=== PATIENT | male | born 1990 | race Caucasian/White ===

== ENCOUNTER → 2019-04-23 15:53 | Outpatient (BNVA) | payer BC, SELFPAY | PROVIDERS: Family Provider Family Medicine; PCP Family Medicine; Visit Provider Nurse Practitioner Psychiatric/Mental Health | DX: F41.1 Generalized anxiety disorder (principal); F33.1 Major depressive disorder, recurrent, moderate; Z79.899 Other long term (current) drug therapy | CPT/HCPCS: 80307; 90832; 99213 ==

== ENCOUNTER → 2019-05-03 15:01 | Outpatient (BNVA) | payer BC, SELFPAY | PROVIDERS: Family Provider Family Medicine; PCP Family Medicine; Visit Provider Nurse Practitioner | DX: G89.29 Other chronic pain (principal); M43.16 Spondylolisthesis, lumbar region; M51.17 Intervertebral disc disorders with radiculopathy, lumbosacral region; M62.830 Muscle spasm of back; F17.210 Nicotine dependence, cigarettes, uncomplicated; Z79.891 Long term (current) use of opiate analgesic | CPT/HCPCS: 99214 ==

== ENCOUNTER → 2019-05-15 17:17 | Outpatient (BNVA) | payer BC, SELFPAY | PROVIDERS: Family Provider Family Medicine; PCP Family Medicine; Visit Provider Nurse Practitioner Family | DX: R05 Cough (principal); J40 Bronchitis, not specified as acute or chronic | CPT/HCPCS: 87804 ==

== ENCOUNTER 2019-07-31 00:28 | Emergency (ER) | payer SELFPAY ==
[2019-07-31 00:37] VITALS: BP 144/70; PULSE 104; RESP 14; TEMP 36.8; O2SAT 98; BMI 24.3
== END 2019-07-31 03:54 | disposition left against medical advice (07) ==
LOC: ER 00:38
PROVIDERS: Emergency Provider Family Medicine
DX: Z53.21 Procedure and treatment not carried out due to patient leaving prior to being seen by health care provider (principal)
CPT/HCPCS: 99281

== ENCOUNTER 2019-08-14 18:27 | Inpatient (IN) | payer SELFPAY ==
[2019-08-14 18:38] VITALS: BP 119/79; PULSE 74; RESP 16; TEMP 36.5; O2SAT 96; BMI 28.8
--- NOTE | 2019-08-14 18:52 | ED_ITS ---
HPI - Psych General: Chief Complaint: Psychiatric Symptoms Stated Complaint: anxiety/depression Time Seen by Provider: 08/14/19 18:45 Source: patient Mode of arrival: ambulatory Limitations: no limitations History of Present Illness: HPI Narrative: 28-year-old male states he has had a lot of stressors recently. He states that he has had changes in his job and is felt very anxious and depressed. He states he was diagnosed with anxiety 3 months ago but is not been taking his meds. He states he is feeling hopeless. He has no suicidal plan states he feels like he needs to be admitted and wants to voluntarily be admitted to the psych unit. He denies any worsening or improving factors at this time. complaint: feels depressed Onset (ago): week(s) Duration: constant Associated symptoms: Reports depression Review of Systems Const: Denies: fever(s), chills, body aches or change in appetite Eyes: Denies: blurry vision or eye discomfort ENMT: Denies: throat pain or dental pain Card: Denies: chest pain Resp: Denies: dyspnea GI: Denies: abdominal pain, nausea, vomiting or diarrhea : Denies: dysuria Musc: Denies: neck pain or back pain Skin/Breast: Denies: rash Neuro: Denies: headache(s) Psych: Reports: anxiety, depression and hopelessness Fernando/Lymph: Denies: easy bruising All/Imm: Denies: urticaria PFSH ED PFSH: Medical History Chronic low back pain Hx of fracture of ankle PINS PLACED AND LATER REMOVED Intervertebral disc disorders with radiculopathy, lumbosacral region Long-term current use of opiate analgesic Lumbar paraspinal muscle spasm Pain management contract signed Spondylolisthesis, lumbar region Tobacco use disorder Family History Father Psychiatric illness SCHIZOPHRENIA Mother Thyroid disease Social History Smoking and tobacco status: current every day smoker Alcohol intake: never Caregiver/support person: Yes Lives independently: Yes Household members: spouse Marital status: Current occupational status: employed Current occupation: [employer] History of recent travel: No Physical Exam Const: COMMON NORMALS: no acute distress, patient oriented x3 and healthy appearing HENMT: COMMON NORMALS: normocephalic and atraumatic HEAD & SCALP: normocephalic and atraumatic Eye: COMMON NORMALS: Equal, round and reactive pupils present and EOMs intact bilaterally PUPIL: Yes Equal, round and reactive pupils present Neck/C-Spine: COMMON NORMALS: full ROM and supple Chest: COMMONS NORMALS: normal inspection of the chest and normal palpation of entire chest wall Resp: COMMON NORMALS: normal respiratory effort, No retractions, No use of accessory muscles and clear to auscultation bilaterally AUSCULTATION: clear to auscultation bilaterally Cardio: COMMON NORMALS: regular rate, regular rhythm and No murmurs present (Cardio) RATE: regular rate RHYTHM: regular rhythm GI: COMMON NORMALS: Normal to inspection, nondistended, normoactive bowel sounds present, Soft to palpation, non-tender and no masses PALPATION: Yes Soft to palpation Extremity: COMMON NORMALS: normal to inspection and full ROM Neuro: COMMON NORMALS: patient oriented x3, moves all extremities and no focal motor deficits Psych: COMMON NORMALS: mental status grossly normal, Normal thought process present and cooperative MOOD & AFFECT: Yes depressed mood, Yes anxious and Yes tearful THOUGHT PROCESS: Normal thought process present Skin: COMMON NORMALS: no rashes or lesions noted and no wounds GENERAL SKIN EXAM: no rashes or lesions noted MDM - Psych 2 MDM Narrative: Medical decision making narrative: Patient presents here with depression and increased stress. Patient is voluntarily wanting to go to psychiatric unit and patient is medically cleared and stable for admission. I spoke to Dr. Dickerson and will admit. Lab Data: Labs: Lab Results 08/14/19 08/14/19 08/14/19 Range/Units 19:32 19:32 20:05 WBC 5.1 (4.0-10.0) 10^3/ uL RBC 5.05 (4.1-5.3) 10^6/u L Hgb 14.2 (11.7-16.6) g/dL Hct 43.3 (42.0-52.0) % MCV 85.7 (80-94) fL MCH 28.1 (28.0-34.0) pg MCHC 32.8 (30.0-36.0) g/dL RDW 12.8 (12.1-15.1) % Plt Count 262 (130-400) 10^3/c mm MPV 10.7 H (7.4-10.4) fL Neut % (Auto) 53.4 % Lymph % (Auto) 37.9 % [place] % (Auto) 7.3 % Eos % (Auto) 0.8 % Baso % (Auto) 0.4 % Neut # (Auto) 2.7 (1.8-7.7) 10^3/u L Lymph # (Auto) 1.9 (0.8-4.8) 10^3/u L [place] # (Auto) 0.4 (0.2-0.9) 10^3/u L Eos # (Auto) 0.0 (0.0-0.8) 10^3/u L Baso # (Auto) 0.0 (0.0-0.1) 10^3/u L Nucleated RBC % (a uto) 0 % Nucleated RBCs # 0.0 /100WBC Sodium 137 (136-145) mmol/L Potassium 4.1 (3.5-5.1) mmol/L Chloride 100 (98-107) mmol/L Carbon Dioxide 25 (22-29) mmol/L Anion Gap 16.1 (5-19) BUN 13 (6-20) mg/dL Creatinine 0.9 (0.7-1.2) mg/dL GFR Calculation 102.0 (90-130) mL/min Glucose 152 H (65-115) mg/dL Calculated Osmolal ity 283 L (285-295) mOsm/k g Calcium 9.6 (8.5-10.5) mg/dL Total Bilirubin 1.4 H (0.15-1.2) mg/dL AST 22 (0-40) U/L ALT 13 (0-41) U/L Alkaline Phosphata se 62 (40-130) IU/L Total Protein 7.2 (6.6-8.7) g/dL Albumin 4.7 (3.5-5.2) g/dL Globulin 2.5 (1.3-4.6) g/dL Salicylates < 0.3 L (3-10) mg/dL Urine Opiates Scre en Negative (Negative) ng/mL Acetaminophen < 5.0 L (10-30) ug/mL Ur Barbiturates Sc reen Negative (Negative) ng/mL Ur Phencyclidine S crn Negative (Negative) ng/mL Ur Amphetamines Sc reen Positive H (Negative) ng/mL U Benzodiazepines Scrn Negative (Negative) ng/mL Urine Cocaine Scre en Negative (Negative) ng/mL U Marijuana (THC) Screen Positive H (Negative) ng/mL Ethyl Alcohol < 10 (0-10) mg/dL Discharge Plan Discharge Patient Disposition: Admitted As Inpatient Admit Provider: Darrin Dickerson Clinical Impression: Depression Qualifiers: Depression Type: unspecified Qualified Code(s): F32.9 - Major depressive disorder, single episode, unspecified Condition: Stable Coding Level of Care Code ED 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
[2019-08-14] MEDS: LORazepam 1 mg Tablet 2 MG PO (19:07)
[2019-08-14 19:47] LABS: Basophils % 0.4 %; Eosinophils % 0.8 %; Hematocrit 43.3 % (42.0-52.0); Hemoglobin 14.2 g/dL (11.7-16.6); Lymphocytes # 1.9 10^3/uL (0.8-4.8); Lymphocytes % 37.9 %; Mean Corpuscular HGB Conc 32.8 g/dL (30.0-36.0); Mean Corpuscular Hemoglobin 28.1 pg (28.0-34.0); Mean Corpuscular Volume 85.7 fL (80-94); Mean Platelet Volume 10.7 fL (7.4-10.4); Monocytes # 0.4 10^3/uL (0.2-0.9); Monocytes % 7.3 %; Neutrophils # 2.7 10^3/uL (1.8-7.7); Neutrophils % 53.4 %; Nucleated Red Blood Cells % 0 %; Platelet Count 262 10^3/cmm (130-400); Red Blood Count 5.05 10^6/uL (4.1-5.3); Red Cell Distribution Width 12.8 % (12.1-15.1); White Blood Count 5.1 10^3/uL (4.0-10.0)
[2019-08-14 20:04] LABS: Alanine Aminotransferase 13 U/L (0-41); Albumin Level 4.7 g/dL (3.5-5.2); Alkaline Phosphatase 62 IU/L (40-130); Anion Gap 16.1 (5-19); Aspartate Amino Transferase 22 U/L (0-40); Blood Urea Nitrogen 13 mg/dL (6-20); Calcium 9.6 mg/dL (8.5-10.5); Carbon Dioxide 25 mmol/L (22-29); Chloride 100 mmol/L (98-107); Globulin 2.5 g/dL (1.3-4.6); Glucose 152 mg/dL (65-115); Osmolality Calculated 283 mOsm/kg (285-295); Potassium 4.1 mmol/L (3.5-5.1); Sodium 137 mmol/L (136-145); Total Bilirubin 1.4 mg/dL (0.15-1.2); Total Protein 7.2 g/dL (6.6-8.7)
[2019-08-14 20:13] LABS: Acetaminophen < 5.0 ug/mL (10-30); Alcohol Level < 10 mg/dL (0-10); Salicylate < 0.3 mg/dL (3-10)
[2019-08-14 20:29] LABS: Amphetamines Screen Urine Positive (Negative); Barbiturates Screen Urine Negative (Negative); Benzodiazepines Screen Urine Negative (Negative); Cocaine Screen Urine Negative (Negative); Opiate Screen Urine Negative (Negative); PCP Screen Urine Negative (Negative); THC Screen Urine Positive (Negative)
[2019-08-14 21:41] VITALS: BP 125/78; PULSE 70; RESP 17; TEMP 36.6; O2SAT 98
[2019-08-14 21:44] VITALS: BP 124/76; PULSE 79; RESP 14; O2SAT 98
[2019-08-14 22:00] VITALS: BP 124/76; PULSE 79; RESP 14; TEMP 36.6; O2SAT 98
[2019-08-15 06:00] VITALS: BP 119/70; PULSE 92; RESP 18; TEMP 36.7; O2SAT 93
[2019-08-15] MEDS: nicotine 21 mg Patch 1 PATCH TRANSDERMA (08:24)
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
[2019-08-15 14:00] VITALS: BP 121/76; PULSE 79; RESP 18; TEMP 36.5; O2SAT 99
[2019-08-15] MEDS: hyDROXYzine 25 mg Capsule 50 MG PO (15:50)
--- NOTE | 2019-08-15 15:51 | PC.NURSE ---
Addendum entered by Hillary Guillen LPN 08/15/19 17:41: prn med effective no further c/o anxiety currently. speaking with physician in his room, mood is calm Original Note: PRN VISTARIL 50 MG GIVEN PO PER PT C/O ANXIETY WILL CONT TO MONITOR
[2019-08-15] MEDS: nicotine 2 mg Gum BUCCAL (18:05)
[2019-08-15 21:42] VITALS: BP 119/72; PULSE 90; RESP 21; TEMP 36.9; O2SAT 99
[2019-08-16 06:00] VITALS: BP 109/59; PULSE 60; RESP 20; TEMP 36.9; O2SAT 98
[2019-08-16] MEDS: propranolol 20 mg Tablet 10 MG PO ×2 (07:59→16:34)
[2019-08-16] MEDS: nicotine 21 mg Patch 1 PATCH TRANSDERMA (08:00)
[2019-08-16] MEDS: acetaminophen 325 mg Tablet 650 MG PO (11:45)
[2019-08-16] MEDS: hyDROXYzine 25 mg Capsule 50 MG PO (11:45)
--- NOTE | 2019-08-16 11:46 | PC.NURSE ---
PRN VISTARIL 50 MG GIVEN PO PER PT C/O STATED ANXIETY. NO OUTWARD S/S OF ANXIETY NOTED. WILL CONT TO MONITOR.
[2019-08-16 14:00] VITALS: BP 107/59; PULSE 77; RESP 18; TEMP 37.3; O2SAT 97
--- NOTE | 2019-08-16 16:35 | PC.NURSE ---
PT CAME TO THE NURSES STATION AND ASKED FOR MEDICATION FOR ANXIETY. ADMINISTERED INDERAL 10 MG PO.WILL CONT TO MONITOR AND FOLLOW UP NEEDED
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
[2019-08-16 18:03] VITALS: BP 107/59; PULSE 77; RESP 18; TEMP 37.3; O2SAT 97
== END 2019-08-16 19:12 | disposition home or self-care (01) | DRG 881 ==
LOC: ER 20:41 → NP 21:31
PROVIDERS: Admitting Provider Psychiatry & Neurology Psychiatry; Emergency Provider Emergency Medicine; Visit Provider Psychiatry & Neurology Psychiatry
DX: F32.9 Major depressive disorder, single episode, unspecified (principal); F15.20 Other stimulant dependence, uncomplicated; F41.9 Anxiety disorder, unspecified; F90.9 Attention-deficit hyperactivity disorder, unspecified type; F17.210 Nicotine dependence, cigarettes, uncomplicated; F10.21 Alcohol dependence, in remission; F12.20 Cannabis dependence, uncomplicated; Z81.8 Family history of other mental and behavioral disorders; Z81.1 Family history of alcohol abuse and dependence; M51.17 Intervertebral disc disorders with radiculopathy, lumbosacral region; M43.16 Spondylolisthesis, lumbar region; Z63.0 Problems in relationship with spouse or partner
CPT/HCPCS: 12345; 36415; 80053; 80306; 80307; 85025; 99284

== ENCOUNTER → 2019-08-21 08:42 | Outpatient (BNVA) | payer BC, SELFPAY | PROVIDERS: Visit Provider Nurse Practitioner Psychiatric/Mental Health | DX: F33.1 Major depressive disorder, recurrent, moderate (principal); F41.1 Generalized anxiety disorder; Z63.0 Problems in relationship with spouse or partner; F12.20 Cannabis dependence, uncomplicated; F15.20 Other stimulant dependence, uncomplicated | CPT/HCPCS: 99212 ==

== ENCOUNTER → 2020-07-08 14:01 | Outpatient (BNVA) | payer BC, SELFPAY | PROVIDERS: Visit Provider Nurse Practitioner Psychiatric/Mental Health | DX: F33.1 Major depressive disorder, recurrent, moderate (principal); F41.1 Generalized anxiety disorder; F12.20 Cannabis dependence, uncomplicated; Z63.0 Problems in relationship with spouse or partner; F15.20 Other stimulant dependence, uncomplicated | CPT/HCPCS: 99214 ==

== ENCOUNTER → 2020-08-12 08:41 | Outpatient (BNVA) | payer BC, SELFPAY | PROVIDERS: Visit Provider Nurse Practitioner Psychiatric/Mental Health | DX: F33.1 Major depressive disorder, recurrent, moderate (principal); F41.1 Generalized anxiety disorder; F12.20 Cannabis dependence, uncomplicated; Z03.89 Encounter for observation for other suspected diseases and conditions ruled out; Z63.0 Problems in relationship with spouse or partner; F15.20 Other stimulant dependence, uncomplicated | CPT/HCPCS: 99214 ==

== ENCOUNTER → 2020-08-13 14:32 | Outpatient (BNVA) | payer BC, SELFPAY | PROVIDERS: Visit Provider Nurse Practitioner Psychiatric/Mental Health | DX: Z03.89 Encounter for observation for other suspected diseases and conditions ruled out (principal) | CPT/HCPCS: 80061; 83036 ==

== ENCOUNTER → 2021-04-21 10:29 | Outpatient (BNVA) | payer MEDICAID, SELFPAY | PROVIDERS: Visit Provider Nurse Practitioner Family | DX: Z20.822 Contact with and (suspected) exposure to COVID-19 (principal) | CPT/HCPCS: 87635 ==